=== PATIENT | female | born 1985 | race Caucasian/White ===

== ENCOUNTER 2016-04-03 09:05 | Outpatient (CLI) | payer OTHER ==
[2016-04-03 09:54] VITALS: BMI 28.3
== END 2016-04-03 11:45 | disposition home or self-care (01) ==
LOC: FBCOUT 09:05 → FBC 09:06 → FBCOUT 11:45
PROVIDERS: ATTEND Family Medicine
DX: O46.90 Antepartum hemorrhage, unspecified, unspecified trimester (principal); Z3A.00 Weeks of gestation of pregnancy not specified
CPT/HCPCS: 59025; 81002; G0463

== ENCOUNTER 2016-04-03 18:23 | Inpatient (IN) | payer OTHER ==
[2016-04-03] MEDS ORDERED: LACTATED RINGERS 1,000 ML IV PRN (20:37)
[2016-04-03] MEDS ORDERED: OXYTOCIN IN LR 500 ML IV ONE (20:37)
[2016-04-03] MEDS ORDERED: IV START KIT ONE (20:53)
[2016-04-03] MEDS ORDERED: LACTATED RINGERS 1,000 ML ONE (20:53)
[2016-04-03] MEDS ORDERED: OXYTOCIN IN LR 0 ML IV ONE (20:53)
[2016-04-03] MEDS ORDERED: MINERAL OIL 25 ML BOT ONE (20:53)
[2016-04-03] MEDS ORDERED: OXYTOCIN 10 UNITS/ML VIAL ONE (20:53)
[2016-04-03] MEDS ORDERED: LIDOCAINE Viscous 2% 15 ML UDCUP ONE (20:53)
[2016-04-03] MEDS ORDERED: LIDOCAINE 1% (PRES FREE) 30 ML VIAL ONE (20:53)
[2016-04-03] MEDS ORDERED: PUMP TUBING ONE (20:53)
[2016-04-03 21:50] VITALS: BMI 28.5
--- NOTE | 2016-04-03 22:06 | PCMAN ---
OB Admission Note - History : 6 Term: 5 : 0 Abortions (S&E): 0 Livin EDC:: 03/30/16 Gestational Age (weeks): 40 Days (#/7): 4 Admit Cervical Dilation:: 6 Admit Cervical Effacement (%):: 80 Admit Station:: -1 Admit Presentaton:: vtx Membrane Status: Ruptured Rupture (Date): 04/03/16 Rupture (Time): 21:44 Membranes Comment:: clear Labor Onset (Date): 04/03/16 Labor Onset (Time): 14:00 Contractions: Yes Contraction Frequency:: q4 Heart Rate:: 120 Status:: category 1 EFW:: 7.5 Summary of Course:: Uncomplicated course, dates calculated by LMP, confirmed by US. GBS negative. US showed asymmetric renal pelvises and patient declined further ultrasound. - Labs Blood Type: O (+) positive Hct/Hgb:: 36.9/12.1 Rubella Status: Immune GBS Status: Negative Abnormal Labs: None - Physical Exam General: Afebrile, No Acute Distress Psych/Mental Status: Mood/Affect Appropriate Neurological: Grossly Intact, Alert, Oriented x 4, Normal Gait, Normal Speech, Normal Reflexes, Cranial Nerves 3-12 Intact HEENT: Atraumatic, PERRLA, EOMI, Mucous membr. moist/pink Lungs: Clear to Auscultation Bilaterally Cardiovascular: Regular Rate and Rhythm, No Murmur Abdomen: Normal Bowel Sounds Genitourinary: Normal Female Genitalia Rectal Exam: Deferred Extremities: Full ROM, No Edema DTR: Patellar (L): 2+ (Brisk, Normal), Patellar (R): 2+ (Brisk, Normal) Skin: Normal Color, No Rash - Problems (1) Post term over 40 weeks Status: Acute Code: O48.0 Assessment/Plan: in active labor, expecting . Patient requests minimalist approach to her care so she declined vaccines during and asks to avoid Pitocin unless absolutely needed. Pitocin will be in the room at the ready given her risk for PP Hemorrhage as a grand multiparous woman. She has also requested early discharge and understands the risk of that. AROM done with clear fluid noted. (2) Grand multipara in labor in third trimester Status: Acute Code: O09.43
--- NOTE | 2016-04-04 01:16 | PCMDEL ---
Delivery Note - Labor 1st stage (hr/min):: 10 hr/46 min 2nd stage (hr/min):: 2 min 3rd stage (hr/min):: 9 min Total (hr/min):: 10 hr/ 57 min Pushed (hr/min):: 2 min - Delivery Delivery (Date): 04/04/16 Delivery (Time): 00:46 Infant Gender: Male Presentation: Cephalic Position: OA Umbilical Cord: 3 Vessel, True Knot Delayed Cord Clamping:: > 3 min 1 Minute Total: 9 5 Minute Total: 9 Placenta:: intact, calcifications EBL:: 250 ml Perineum:: intact Suture:: N/A Anesthesia/Meds:: none Length ROM:: 3 hr/ 2 min Comments:: Unattended delivery despite my presence down the terrazas. Patient is very stoic and the RN in the room had no idea the baby was delivering until it was over. There were no complications.
[2016-04-04] MEDS ORDERED: BENZOCAINE/MENTHOL 60 APPLIC/BOT TP PRN (01:23)
[2016-04-04] MEDS ORDERED: OXYCODONE/ACETAMINOPHEN 5/325 MG TABLET PO PRN (01:23)
[2016-04-04] MEDS ORDERED: CALCIUM CARBONATE 500 MG TAB.CHEW PO PRN (01:23)
[2016-04-04] MEDS ORDERED: LANOLIN 50 APPLIC/7G TUBE TP PRN (01:23)
[2016-04-04] MEDS ORDERED: OXYCODONE HCL 5 MG TABLET PO PRN (01:23)
[2016-04-04] MEDS ORDERED: IBUPROFEN 800 MG TABLET PO PRN (01:23)
[2016-04-04] MEDS ORDERED: ACETAMINOPHEN 325 MG TABLET PO PRN (01:23)
[2016-04-04] MEDS ORDERED: DOCUSATE SODIUM 100 MG CAPSULE PO PRN (01:23)
[2016-04-04 01:49] LABS: HEMATOCRIT 36.5 % (37.0-47.0); HEMOGLOBIN 12.1 gm/l (12.0-16.0)
--- NOTE | 2016-04-04 12:25 | PDOC39B ---
Hospital Course: ADMIT DATE: 04/03/16 DISCHARGE DATE: 04/04/16 ADMISSION DIAGNOSES: Post term PROCEDURES: Spontaneous Vaginal Delivery HISTORY OF PRESENT ILLNESS: 31 year old G6 T5 L5 at 40 weeks 5 days presenting with active labor had uncomplicated vaginal delivery. She delivered precipitously while standing at bedside due to unrecognized complete dilation. Patient said she didn't push but the baby delivered before she could move to the bed. Nurse and were able to catch the baby and I arrived shortly after to finish the delivery. HOSPITAL COURSE: The patient had uncomplicated post course. By day of discharge the patient is ambulating, eating, voiding, and passing flatus without difficulty. Pain is controlled and lochia is appropriate. She is [] - Physical Exam Vital Signs: Temp Pulse Resp BP Pulse Ox 98.4 F 77 18 105/62 04/04/16 07:53 04/04/16 07:53 04/04/16 07:53 04/04/16 07:53 General: Afebrile, No Acute Distress Psych/Mental Status: Mood/Affect Appropriate Neurological: Grossly Intact, Alert, Oriented x 4, Normal Speech, Normal Reflexes, Cranial Nerves 3-12 Intact HEENT: Atraumatic, PERRLA, EOMI, Mucous membr. moist/pink Lungs: Clear to Auscultation Bilaterally Cardiovascular: Regular Rate and Rhythm, No Murmur Breast: Soft, Skin intact, Nipples Intact, No Nipples Cracked Fundus: Firm, Midline, At Umbilicus Abdomen: Normal Bowel Sounds Genitourinary: Normal Female Genitalia, No Edema Lochia: Light Extremities: Full ROM, No Edema Deep Tendon Reflexes: Patellar (L): 2+ (Brisk, Normal), Patellar (R): 2+ (Brisk , Normal) Skin: Normal Color, Warm, Dry, Intact, No Rash Wound: Dressing Clean/Dry/Intact, Well Approximated - Discharge Diagnosis (1) Normal spontaneous vaginal delivery Status: Acute Assessment/Plan: stable, patient desires discharge prior to 24 hours, understands risks, will discharge home. - Discharge Plan Condition: Good Disposition: Home Instruction Forms: Vaginal Discharge Instructions Prescriptions: Cholecalciferol (Vitamin D3) [Vitamin D3] 5,000 units PO DAILY #100 capsule Follow-Up: Arianne Sheets MD [Primary Care Provider] - In 6 weeks
[2016-04-04 15:09] VITALS: BP 119/62
== END 2016-04-04 15:50 | disposition home or self-care (01) | DRG 775 ==
LOC: FBCOUT 18:23 → FBC 18:24 → FBCOUT 20:35 → FBC 20:50 → UNDOADMIN 20:50 → FBC 04-04 04:04
PROVIDERS: ADMIT Family Medicine; ATTEND Family Medicine
PROC: 10E0XZZ Delivery of Products of Conception, External Approach (ICD-10-PCS; principal; 2016-04-04)
DX: O48.0 Post-term pregnancy (principal); O62.3 Precipitate labor; O69.2XX0 Labor and delivery complicated by other cord entanglement, with compression, not applicable or unspecified; O09.43 Supervision of pregnancy with grand multiparity, third trimester; Z3A.40 40 weeks gestation of pregnancy; Z37.0 Single live birth